=== PATIENT | female | born 1950 | race Caucasian/White ===

== ENCOUNTER → 2017-02-01 | Outpatient (CLI) | payer OTHER | LOC: CIMAGING 10:28 | PROVIDERS: ATTEND Obstetrics & Gynecology Gynecology | DX: Z12.31 Encounter for screening mammogram for malignant neoplasm of breast (principal) | CPT/HCPCS: G0202 ==

== ENCOUNTER → 2018-02-14 | Outpatient (CLI) | payer OTHER | LOC: CIMAGING 12:55 | PROVIDERS: ATTEND Obstetrics & Gynecology Gynecology | DX: N60.12 Diffuse cystic mastopathy of left breast (principal) | CPT/HCPCS: 76641-PO ==

== ENCOUNTER → 2018-02-26 | Outpatient (CLI) | payer OTHER ==
[~2018-02-26] MED LIST: BUPIVACAINE 0.5% 30 ML SDV ONE; LIDOCAINE 1% 300 MG/30 ML SDV ONE
== END ==
LOC: FIMAGING 07:32
PROVIDERS: ATTEND Physician Assistant Medical
PROC: 0HBU3ZX Excision of Left Breast, Percutaneous Approach, Diagnostic (ICD-10-PCS; principal; 2018-02-26)
DX: N60.12 Diffuse cystic mastopathy of left breast (principal)

== ENCOUNTER → 2018-09-04 | Outpatient (CLI) | payer OTHER | LOC: CIMAGING 09:33 | PROVIDERS: ATTEND Internal Medicine | DX: R92.8 Other abnormal and inconclusive findings on diagnostic imaging of breast (principal) ==